=== PATIENT | female | born 1990 | race Caucasian/White ===

== ENCOUNTER 2018-04-03 16:08 | Inpatient (IN) ==
--- NOTE | 2018-04-03 16:48 | Emergency Department Note ---
Disposition Clinical Impression: Community acquired pneumonia Qualifiers: Laterality: unspecified laterality Qualified Code(s): J18.9 - Pneumonia, unspecified organism Disposition: Admitted As Inpatient Condition: Fair Time of Disposition: 18:37 Fever HPI - General Chief Complaint: ED Fever Stated Complaint: cough fever chest discomfort Time Seen by Provider: 04/03/18 16:11 Source: patient Limitations: no limitations - History of Present Illness HPI Narrative: Patient presents with history of illness 2 days. Lightheadedness. Today felt like she might pass out. Slight cough. Fever. Holloway her heart racing last evening and again today. Holloway winded especially when she lays flat. Or if she exerts herself. Reports an all over chest tightness with pain worse with deep inspiration. Fever. Generalized body aches Pt Subjective Complaint: fever, malaise, weakness Onset (ago): day(s) (2) Maximum Temperature Reported: 102 F Temperature Source: oral Associated symptoms: Reports: chills, rigors, myalgias, nasal congestion, cough , dyspnea, nausea, night sweats. Denies: headache, sore throat, stiff neck, abdominal pain, vomiting, diarrhea, dysuria, rash, altered mental status, weight loss Improves with: acetaminophen Worsens with: exertion Treatments prior to arrival fever: acetaminophen - Related Data Home Medications Medication Instructions Recorded Confirmed Metoprolol [Lopressor] 25 mg PO BID 04/03/18 04/03/18 Allergies Allergy/AdvReac Type Severity Reaction Status Date / Time No Known Allergies Allergy Verified 06/12/17 10:59 All systems ED: reviewed and negative except as stated. Review of Systems: As Per HPI Fever PMH - Past Medical History Medical history: Reports: hypertension Surgical history: Reports: no surgical history Psychiatric history: Reports: anxiety LEASE PICKER history: Reports: - Social History Smoking Status: Unknown if ever smoked Alcohol use: Reports: occasionally Drug use: Reports: none Physical Exam Constitutional: Patient is oriented to person, place, and time. Skin color is pink. Appears well hydrated, body habitus normal . Non toxic appearing. Did not appear dyspneic or tachypnea. But she was tachycardic and flushed Head: Normocephalic and atraumatic. External ear exam normal Nose: Nose normal. Mouth/Throat: Uvula is midline, oropharynx is clear and moist and mucous membranes are normal. Eyes: Conjunctivae nl, extraocular motions and lids are normal. Pupils are equal , round, and reactive to light. Neck: Normal range of motion and phonation normal. Neck supple. Cardiovascular: Rapid rate, regular rhythm, normal heart sounds. Pulmonary/Chest: No Respiratory distress. Respiratory Effort normal and breath sounds diminished without rhonchi, rales, wheezing. Abdominal: Soft. Normal appearance and bowel sounds are normal. no tenderness, no masses, no guarding, no rebound Musculoskeletal: Good distal pulses. Soft compartments. Brisk cap refill. Extremities: Normal range of motion.Intact peripheral pulses. No Edema. Extremity skin color nl, no calf tenderness or palpable cords. Neurological: GCS 15 Patient is alert and oriented without evidence of obvious motor deficits Skin: Skin is warm, dry and intact. color is normal, cap refill is quick Psychiatric: Patient has normal mood and affect. Patient speech is normal and behavior is normal. Thought content normal. - General Limitations: no limitations General appearance: alert, in no apparent distress Course - Reevaluation(s) Reevaluation #1: Patient has significantly elevated d-dimer, evidence of near syncope and tachycardia. CTA was ordered to rule out PE. However my interpretation of chest x-ray reveals possible infiltrate which would explain her fever and tachycardia. Patient has otherwise normal labs except for elevated white blood cell count with a bit of a left shift. She has negative influenza A, B, and strep. And no sign of urinary tract infection. She is currently improving with tachycardia improved after IV fluids. Antibiotics were ordered for possible community-acquired pneumonia Pneumonia score for community-acquired pneumonia is low risk Time: 17:42 Reevaluation #2: After 2 L of IV fluid the patient remains tachycardic at 120. She states that she feels much better. She is being treated for her pneumonia. When she had up to go to the bathroom her heart rate went back up to 140 and she will require hospitalization. I discussed the case with [facility] bed management at [facility] at 1826. I have also added thyroid studies Time: 18:27 Reevaluation #3: I felt as though the patient required closer observation than is possible at this facility so I contacted bed management in an attempt to transfer this patient to the hospitalist service at [facility]. I spoke with Dr. Junior who indicates that he does not see any reason with the patient cannot be admitted to the hospitalist at our facility and slightly to call him. Time: 18:36 - Consultations Consultation #1: 4 indicated that this patient was actually a patient of Dr. Ho. I paged for that group and Dr. Davis called me back. He was made aware of the patient' s. We discussed her presentation and test results. We discussed her current treatment and continued treatment. And he agrees to accept the patient for hospitalization here and I have entered orders at his request Time: 19:56 Vital Signs Temperature 97.8 F 04/03/18 16:31 Pulse Rate 151 04/03/18 16:31 Respiratory Rate 16 04/03/18 16:31 Blood Pressure 167/90 04/03/18 16:31 O2 Sat by Pulse Oximetry 97 04/03/18 16:31 Temperature 97.6 F 04/03/18 20:35 Pulse Rate 126 04/03/18 20:35 Respiratory Rate 18 04/03/18 20:35 Blood Pressure 163/83 04/03/18 20:35 O2 Sat by Pulse Oximetry 96 04/03/18 20:35 Oxygen Delivery Oxygen Delivery Room Air Fever - MDM Narrative Medical decision making narrative: Concern regarding possible sepsis with tachycardia. It was rather extreme. Also differential diagnosis includes PE, pneumonia, - Differential Diagnosis Likely: fever of occult origin, community acquired pneumonia, pyelonephritis, sepsis, influenza - Lab Data Lab results reviewed: Yes I reviewed the patient's lab results. Result diagrams: 04/03/18 16:45 04/03/18 16:45 Lab Results 04/03/18 04/03/18 04/03/18 Range/Units 16:45 16:45 16:45 WBC 14.7 H (4.3-11.1) K/mcL RBC 5.38 H (3.82-4.97) M/mcL Hgb 13.2 (11.5-15.4) g/dL Hct 40.8 (35.3-44.9) % MCV 75.8 L (83.0-100.0) fL MCH 24.5 L (28.0-33.3) pg MCHC 32.4 (31.6-35.5) g/dL RDW 15.6 H (11.5-14.5) % Plt Count 272 (140-400) K/mcL MPV 11.2 (9.4-12.4) fL Immature Gran % 0.4 (0-4) % Seg Neutrophils % 89.4 % Lymphocytes % 5.6 % Monocytes % 3.4 % Eosinophils % 1.1 % Basophils % 0.1 % Neutrophils # 13.1 H (1.6-8.9) K/mcL Lymphocytes # 0.8 (0.6-4.6) K/mcL Monocytes # 0.5 (0.0-1.3) K/mcL Eosinophils # 0.2 (0.0-0.6) K/mcL Basophils # 0.0 (0.0-0.2) K/mcL D-Dimer (0-500) ng/mLFEU VBG pH (7.32-7.42) pH Units VBG pCO2 (41-51) mmHg VBG pO2 (25-50) mmHg VBG HCO3 (21-27) mEq/L Sodium 134 L (136-145) mEq/L Potassium 3.4 L (3.5-5.1) mEq/L Chloride 102 (98-107) mEq/L Carbon Dioxide 25 (23-29) mEq/L BUN 9 (6-20) mg/dL Creatinine 0.71 (0.60-1.20) mg/dL Est GFR ( Amer) > 60 (> 60) Est GFR (Non-Af Amer) > 60 (> 60) BUN/Creatinine Ratio 13 (6-26) Glucose 140 H (70-105) mg/dL Calculated Osmolality 279 L (280-300) Lactic Acid 1.6 (0.5-2.2) mmol/L Calcium 9.1 (8.6-10.3) mg/dL Total Bilirubin 0.3 (0.3-1.0) mg/dL Direct Bilirubin 0.1 (0.0-0.2) mg/dL Indirect Bilirubin 0.2 (0.0-1.2) mg/dL AST 9 L (13-39) Units/L ALT 8 (7-52) Units/L Alkaline Phosphatase 76 (34-104) Units/L Serum Total Protein 7.6 (6.4-8.9) g/dL Albumin 3.9 (3.5-5.7) g/dL Globulin 3.7 H (2.4-3.5) g/dL Albumin/Globulin Ratio 1.1 (1.1-2.2) TSH (0.340-5.600) mcIU/mL Urine Color (Yellow) Urine Clarity (Clear) Urine pH (5.0-8.0) pH Units Ur Specific [place] (1.010-1.025) Urine Protein (Neg-Trace) mg/dL Urine Glucose (UA) (Normal) mg/dL Urine Ketones (Negative) mg/dL Urine Blood (Negative) Urine Nitrite (Negative) Urine Bilirubin (Negative) Urine Urobilinogen (Normal) mg/dL Ur Leukocyte Esterase (Negative) Urine Microscopic RBC (0-3) per hpf Urine Microscopic WBC (0-3) per hpf Ur Squamous Epith Cells (None-Few) per lpf Urine Bacteria (None-Few) per hpf Ur Culture Indicated? (NO) Urine Test (Negative) Salicylates (15.0-30.0) mg/dL 04/03/18 04/03/18 04/03/18 Range/Units 16:45 16:45 16:54 WBC (4.3-11.1) K/mcL RBC (3.82-4.97) M/mcL Hgb (11.5-15.4) g/dL Hct (35.3-44.9) % MCV (83.0-100.0) fL MCH (28.0-33.3) pg MCHC (31.6-35.5) g/dL RDW (11.5-14.5) % Plt Count (140-400) K/mcL MPV (9.4-12.4) fL Immature Gran % (0-4) % Seg Neutrophils % % Lymphocytes % % Monocytes % % Eosinophils % % Basophils % % Neutrophils # (1.6-8.9) K/mcL Lymphocytes # (0.6-4.6) K/mcL Monocytes # (0.0-1.3) K/mcL Eosinophils # (0.0-0.6) K/mcL Basophils # (0.0-0.2) K/mcL D-Dimer 1044 H (0-500) ng/mLFEU VBG pH 7.39 (7.32-7.42) pH Units VBG pCO2 42 (41-51) mmHg VBG pO2 37 (25-50) mmHg VBG HCO3 25 (21-27) mEq/L Sodium (136-145) mEq/L Potassium (3.5-5.1) mEq/L Chloride (98-107) mEq/L Carbon Dioxide (23-29) mEq/L BUN (6-20) mg/dL Creatinine (0.60-1.20) mg/dL Est GFR ( Amer) (> 60) Est GFR (Non-Af Amer) (> 60) BUN/Creatinine Ratio (6-26) Glucose (70-105) mg/dL Calculated Osmolality (280-300) Lactic Acid (0.5-2.2) mmol/L Calcium (8.6-10.3) mg/dL Total Bilirubin (0.3-1.0) mg/dL Direct Bilirubin (0.0-0.2) mg/dL Indirect Bilirubin (0.0-1.2) mg/dL AST (13-39) Units/L ALT (7-52) Units/L Alkaline Phosphatase (34-104) Units/L Serum Total Protein (6.4-8.9) g/dL Albumin (3.5-5.7) g/dL Globulin (2.4-3.5) g/dL Albumin/Globulin Ratio (1.1-2.2) TSH 1.258 (0.340-5.600) mcIU/mL Urine Color (Yellow) Urine Clarity (Clear) Urine pH (5.0-8.0) pH Units Ur Specific [place] (1.010-1.025) Urine Protein (Neg-Trace) mg/dL Urine Glucose (UA) (Normal) mg/dL Urine Ketones (Negative) mg/dL Urine Blood (Negative) Urine Nitrite (Negative) Urine Bilirubin (Negative) Urine Urobilinogen (Normal) mg/dL Ur Leukocyte Esterase (Negative) Urine Microscopic RBC (0-3) per hpf Urine Microscopic WBC (0-3) per hpf Ur Squamous Epith Cells (None-Few) per lpf Urine Bacteria (None-Few) per hpf Ur Culture Indicated? (NO) Urine Test (Negative) Salicylates < 2.5 L (15.0-30.0) mg/dL 04/03/18 04/03/18 Range/Units 16:58 16:58 WBC (4.3-11.1) K/mcL RBC (3.82-4.97) M/mcL Hgb (11.5-15.4) g/dL Hct (35.3-44.9) % MCV (83.0-100.0) fL MCH (28.0-33.3) pg MCHC (31.6-35.5) g/dL RDW (11.5-14.5) % Plt Count (140-400) K/mcL MPV (9.4-12.4) fL Immature Gran % (0-4) % Seg Neutrophils % % Lymphocytes % % Monocytes % % Eosinophils % % Basophils % % Neutrophils # (1.6-8.9) K/mcL Lymphocytes # (0.6-4.6) K/mcL Monocytes # (0.0-1.3) K/mcL Eosinophils # (0.0-0.6) K/mcL Basophils # (0.0-0.2) K/mcL D-Dimer (0-500) ng/mLFEU VBG pH (7.32-7.42) pH Units VBG pCO2 (41-51) mmHg VBG pO2 (25-50) mmHg VBG HCO3 (21-27) mEq/L Sodium (136-145) mEq/L Potassium (3.5-5.1) mEq/L Chloride (98-107) mEq/L Carbon Dioxide (23-29) mEq/L BUN (6-20) mg/dL Creatinine (0.60-1.20) mg/dL Est GFR ( Amer) (> 60) Est GFR (Non-Af Amer) (> 60) BUN/Creatinine Ratio (6-26) Glucose (70-105) mg/dL Calculated Osmolality (280-300) Lactic Acid (0.5-2.2) mmol/L Calcium (8.6-10.3) mg/dL Total Bilirubin (0.3-1.0) mg/dL Direct Bilirubin (0.0-0.2) mg/dL Indirect Bilirubin (0.0-1.2) mg/dL AST (13-39) Units/L ALT (7-52) Units/L Alkaline Phosphatase (34-104) Units/L Serum Total Protein (6.4-8.9) g/dL Albumin (3.5-5.7) g/dL Globulin (2.4-3.5) g/dL Albumin/Globulin Ratio (1.1-2.2) TSH (0.340-5.600) mcIU/mL Urine Color Yellow (Yellow) Urine Clarity Clear (Clear) Urine pH 6.0 (5.0-8.0) pH Units Ur Specific [place] 1.020 (1.010-1.025) Urine Protein Negative (Neg-Trace) mg/dL Urine Glucose (UA) Normal (Normal) mg/dL Urine Ketones Negative (Negative) mg/dL Urine Blood Small H (Negative) Urine Nitrite Negative (Negative) Urine Bilirubin Negative (Negative) Urine Urobilinogen Normal (Normal) mg/dL Ur Leukocyte Esterase Negative (Negative) Urine Microscopic RBC 3-5 H (0-3) per hpf Urine Microscopic WBC 0-3 (0-3) per hpf Ur Squamous Epith Cells Many H (None-Few) per lpf Urine Bacteria Moderate H (None-Few) per hpf Ur Culture Indicated? NO (NO) Urine Test Negative (Negative) Salicylates (15.0-30.0) mg/dL - Radiology Data Radiology results reviewed: Yes I reviewed the patient's radiology results. My evaluation of portable chest x-ray reveals bilateral lower lobe infiltrate with left middle lobe infiltrate I have reviewed the radiology interpretation of this chest x-ray diagnosis left lower lobe pneumonia - EKG Data EKG attestation: Yes I reviewed and interpreted this EKG. EKG shows normal: sinus rhythm Rate: tachycardia When compared to previous EKG there are: no significant changes Interpretation: no acute changes
[2018-04-03 16:53] LABS: Basophils % 0.1 %; Eosinophils # 0.2 K/mcL (0.0-0.6); Eosinophils % 1.1 %; Hematocrit 40.8 % (35.3-44.9); Hemoglobin 13.2 g/dL (11.5-15.4); Immature Granulocytes % 0.4 % (0-4); Lymphocytes # 0.8 K/mcL (0.6-4.6); Lymphocytes % 5.6 %; Mean Corpuscular HGB Conc 32.4 g/dL (31.6-35.5); Mean Corpuscular Hemoglobin 24.5 pg (28.0-33.3); Mean Corpuscular Volume 75.8 fL (83.0-100.0); Mean Platelet Volume 11.2 fL (9.4-12.4); Monocytes # 0.5 K/mcL (0.0-1.3); Monocytes % 3.4 %; Neutrophils # 13.1 K/mcL (1.6-8.9); Platelet Count 272 K/mcL (140-400); Red Blood Count 5.38 M/mcL (3.82-4.97); Red Cell Distribution Width 15.6 % (11.5-14.5); Segmented Neutrophils % 89.4 %
[2018-04-03] MEDS: 0.9 % Sodium Chloride 1,000 ML IVC SCH ×8 (17:00→22:32)
[2018-04-03 17:04] LABS: Alanine Aminotransferase 8 Units/L (7-52); Albumin 3.9 g/dL (3.5-5.7); Albumin/Globulin Ratio 1.1 (1.1-2.2); Alkaline Phosphatase 76 Units/L (34-104); Aspartate Amino Transferase 9 Units/L (13-39); BUN/Creatinine Ratio 13 (6-26); Bilirubin,Direct 0.1 mg/dL (0.0-0.2); Bilirubin,Indirect 0.2 mg/dL (0.0-1.2); Bilirubin,Total 0.3 mg/dL (0.3-1.0); Blood Urea Nitrogen 9 mg/dL (6-20); Calcium 9.1 mg/dL (8.6-10.3); Carbon Dioxide 25 mEq/L (23-29); Chloride 102 mEq/L (98-107); Globulin 3.7 g/dL (2.4-3.5); Glucose 140 mg/dL (70-105); Osmolality,Calculated 279 (280-300); Potassium 3.4 mEq/L (3.5-5.1); Sodium 134 mEq/L (136-145); Total Protein 7.6 g/dL (6.4-8.9); eGFR For Non-African Americans > 60 (> 60)
[2018-04-03 17:09] LABS: Bilirubin,Urine Negative (Negative); Blood,Urine Small (Negative); Clarity,Urine Clear (Clear); Color,Urine Yellow (Yellow); Glucose,Urine (UA) Normal (Normal); Ketones,Urine Negative (Negative); Leukocyte Esterase,Urine Negative (Negative); Nitrite,Urine Negative (Negative); Protein,Urine Negative (Neg-Trace); Urobilinogen,Urine Normal (Normal)
[2018-04-03 17:13] LABS: VBG HCO3 25 mEq/L (21-27); VBG PCO2 42 mmHg (41-51); VBG PH 7.39 pH Units (7.32-7.42); VBG PO2 37 mmHg (25-50)
[2018-04-03 17:13] LABS: Squamous Epithelial Cell,Urine Many per lpf (None-Few); WBC,Urine 0-3 per hpf (0-3)
[2018-04-03 17:14] LABS: Bacteria,Urine Moderate per hpf (None-Few)
[2018-04-03] MEDS ORDERED: Isovue-370 500 ML INFUS..BTL IV ONE ×2 (17:15→20:12)
[2018-04-03] MEDS ORDERED: ISOVUE-370 100 ML INFUS..BTL IV ONE (17:37)
[2018-04-03] MEDS ORDERED: cefTRIAXone 1,000 MG in Water for inj. (sterile) 20 ML 10 ML IVP ONE (17:40)
[2018-04-03] MEDS ORDERED: Azithromycin 250 MG TABLET PO ONE (17:41)
[2018-04-03] MEDS ORDERED: *HR* HYDROmorphone (PF) 1 MG/ML SYRINGE IVP ONE (18:42)
[2018-04-03 19:12] LABS: Salicylate < 2.5 mg/dL (15.0-30.0)
[2018-04-03 19:27] LABS: Thyroid Stimulating Hormone 1.258 mcIU/mL (0.340-5.600)
[2018-04-03] MEDS ORDERED: Naloxone 0.4 MG/ML INJ IVP PRN (20:12)
[2018-04-03] MEDS ORDERED: 0.9 % Sodium Chloride 1,000 ML IVC SCH (20:12)
[2018-04-03] MEDS: *HR* Enoxaparin 40 MG/0.4 ML SYRINGE SQ SCH (22:37)
[2018-04-03] MEDS: Ondansetron ODT 4 MG TAB.RAPDIS SL PRN (22:38)
[2018-04-03] MEDS: Levalbuterol Neb 1.25 MG/3 ML IH PRN (22:38)
[2018-04-03] MEDS: 0.9 % Sodium Chloride w KCl 20 MEQ/1,000 ML MLS IVC SCH (22:38)
[2018-04-03] MEDS: Promethazine/Codeine Oral Sryup 5 ML UDC PO PRN (22:38)
[2018-04-03] MEDS: *HR* HYDROcodone/Acet 5/325 mg TABLET PO PRN (22:40)
[2018-04-04] MEDS: Ibuprofen 400 MG TABLET PO PRN ×2 (02:45→09:18)
[2018-04-04] MEDS: Acetaminophen 325 MG TABLET PO PRN ×3 (04:00→19:44)
[2018-04-04 05:14] LABS: Basophils % 0.1 %; Eosinophils # 0.2 K/mcL (0.0-0.6); Eosinophils % 1.2 %; Hematocrit 34.4 % (35.3-44.9); Hemoglobin 10.8 g/dL (11.5-15.4); Immature Granulocytes % 0.5 % (0-4); Lymphocytes # 0.7 K/mcL (0.6-4.6); Lymphocytes % 4.1 %; Mean Corpuscular HGB Conc 31.4 g/dL (31.6-35.5); Mean Corpuscular Volume 76.4 fL (83.0-100.0); Mean Platelet Volume 10.9 fL (9.4-12.4); Monocytes # 0.6 K/mcL (0.0-1.3); Monocytes % 3.8 %; Neutrophils # 14.7 K/mcL (1.6-8.9); Platelet Count 241 K/mcL (140-400); Red Cell Distribution Width 15.7 % (11.5-14.5); Segmented Neutrophils % 90.3 %
[2018-04-04] MEDS: 0.9 % Sodium Chloride w KCl 20 MEQ/1,000 ML MLS IVC SCH ×2 (05:22→13:26)
[2018-04-04 05:30] LABS: Alanine Aminotransferase 5 Units/L (7-52); Albumin 3.2 g/dL (3.5-5.7); Albumin/Globulin Ratio 1.1 (1.1-2.2); Alkaline Phosphatase 57 Units/L (34-104); Aspartate Amino Transferase 8 Units/L (13-39); BUN/Creatinine Ratio 11 (6-26); Bilirubin,Total 0.5 mg/dL (0.3-1.0); Blood Urea Nitrogen 6 mg/dL (6-20); Calcium 7.6 mg/dL (8.6-10.3); Carbon Dioxide 22 mEq/L (23-29); Chloride 108 mEq/L (98-107); Globulin 2.8 g/dL (2.4-3.5); Glucose 119 mg/dL (70-105); Magnesium 1.5 mg/dL (1.6-2.6); Osmolality,Calculated 283 (280-300); Phosphorous 2.3 mg/dL (2.7-4.5); Potassium 3.8 mEq/L (3.5-5.1); Sodium 137 mEq/L (136-145); eGFR For Non-African Americans > 60 (> 60)
[2018-04-04] MEDS: Levalbuterol Neb 1.25 MG/3 ML IH PRN ×4 (05:41→15:41)
[2018-04-04] MEDS: Promethazine/Codeine Oral Sryup 5 ML UDC PO PRN ×3 (05:42→20:02)
--- NOTE | 2018-04-04 07:47 | Internal Med History&Physical ---
Date of Encounter: 04/04/18 Time of Encounter: 07:40 Assessment and Plan (1) Bilateral pneumonia Current visit: Yes Status: Acute Patient has biapical pneumonia, likely community-acquired. She has associated leukocytosis, fever, tachycardia and relative hypoxia with saturations in the low 90s. She is feeling better with IV fluids, antibiotics. We will continue current plan. She is ill enough that she warrants hospitalization and I anticipate she is going to be here about 3 days. Qualifiers: Pneumonia type: due to unspecified organism Lung location: unspecified part of lung Qualified Code(s): J18.9 - Pneumonia, unspecified organism (2) Tachycardia Current visit: Yes Status: Acute Tachycardia is noted in the ER to the 140s. Current she is in the 120s. She has a long-standing history of heart rate averaging in the 100 range. She is having no angina. She has no cardiac history. Monitor shows sinus tachycardia. I am not dissipating any decompensation from this because of her age of 1.27 years. She will remain on a diagnostic cardiac sonographer for now though. She had negative CT for PE. (3) Hypertension Current visit: Yes Status: Chronic Chronic history of hypertension and takes low-dose metoprolol. She will be monitored during this hospital stay. She may benefit from a higher dose particularly if she stays tachycardic. Qualifiers: Hypertension type: essential hypertension Qualified Code(s): I10 - Essential (primary) hypertension (4) History of migraine Current visit: Yes Status: Chronic Chronic history of migraines. Currently under control. (5) Anemia Current visit: Yes Status: Acute Her hemoglobin dropped I suspect this is dilutional. We will monitor. No obvious signs of hemorrhage. She is hemodynamically stable. Qualifiers: Anemia type: unspecified type Qualified Code(s): D64.9 - Anemia, unspecified (6) Hypophosphatemia Current visit: Yes Status: Acute (7) Hypomagnesemia Current visit: Yes Status: Acute We will start magnesium. (8) Hypokalemia Current visit: Yes Status: Acute Potassium was added to her IV fluids. (9) DVT prophylaxis Current visit: Yes Status: Acute She will receive Lovenox for DVT prophylaxis as she will be in bed a lot of the time at this point. 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 She said she started to feel ill a day prior to admission, on Saturday and had nausea and felt lightheaded like she could pass out. She laid down beside the toilet and she thought she may have fallen asleep or passed out. When she awoke she went on to school. She took a nap after school. When she was in the car picking up her children she had a fever that spiked to 102 and then later to 104 orally. It came on very suddenly. She had chest discomfort, she can feel her heart "bounding" and she had started coughing. She has had no sputum production. Since that time she has had unrelenting coughing enough to give her a headache and nausea, she has had ongoing fevers and chills. She came to the emergency room for evaluation. In the emergency room she was found to have leukocytosis, chest x-ray suggestive of left lower lobe pneumonia. Her d-dimer was over a thousand and [address] scan to rule out PE showed bilateral apical infiltrates consistent with pneumonia. She was also found to have tachycardia with pulse sometimes into the 140s when she was ambulating. Her pulse ox was staying in the low 90s. It was recommended that she be admitted to the hospital. Through the night she had a horrible cough, she was given a cough suppressant to ease the cough as well as the chest and headache secondary to the cough. Her pulse remained in the 120s. She has low-grade fever. She is feeling somewhat better. She is having less headache currently. She told me she had not eaten in 2 or 3 days. Unfortunately, she started smoking about a month or so ago and smokes less than half pack a day. Past Med Surg Social Fam HX - Past Medical History Medical history: hypertension, migraine (History of migraine headaches, usually occipital), other (Patient smokes half a pack of cigarettes per day) Additional medical history: HTN WITH Psychiatric history: anxiety - Past Surgical History Surgical History: other (Tubal ligation) Additional surgical history: Tubal Ligation - Social History Smoking Status: Current every day smoker Packs per day: 1/2 Smokeless Tobacco Status: No Alcohol use: occasionally Drug use: none Occupational status: student (student success counselor) Current living situation: With Family (She is and has 3 children) Activity Level: Independent ambulation Recent Out of Country Travel Within the Last 8 Weeks: No Exposure or Possible Exposure to Illness During Travel: No - Family History Mother Hx Family Cancer: Yes (cervical CA) Hx Family Endocrine Disorder: Yes (Diabetes) Father Living Status: Still Living Internal Medicine - H&P: Meds Metoprolol [Lopressor] 25 mg PO BID 04/03/18 [History] 3 Allergy/AdvReac Type Severity Reaction Status Date / Time No Known Allergies Allergy Verified 06/12/17 10:59 - Constitutional Constitutional: anorexia, chills, fever(s), lethargy - EENT Eyes: tunnel vision (She gets tunnel vision when she has a migraine headache. Currently none.), no change in vision, no loss of vision Ears: no ear discharge, no ear pain Nose, mouth and throat: no sinus pressure, no sore throat - Cardiovascular Cardiovascular ROS IM: chest pain (Muscular chest pain with coughing), dyspnea, dyspnea on exertion (She became short of breath just walking a few feet to the bathroom), lightheadedness, palpitations, no irregular heart rhythm - Respiratory Respiratory: dyspnea, dyspnea on exertion, wheezing, pain on inspiration, chest congestion - Gastrointestinal Gastrointestinal: nausea, no change in bowel habits, no constipation, no vomiting - Genitourinary Genitourinary: no dysuria, no hematuria Menstruation: period normal, other (Status post BPS. Menses are about once a month, generally at the end of the month) - Musculoskeletal Musculoskeletal ROS IM: no back pain, no muscle weakness - Integumentary Integumentary IM: no rash - Neurological Neurological ROS: no confusion, no focal weakness, no frequent falls, no memory loss - Psychiatric Psychiatric: anxiety (Patient has a history of anxiety. She took citalopram and BuSpar. She has had none now for the past few weeks) - Allergic/Immunologic Allergic/Immunologic: other (She thinks she may have a mild reaction to latex ais noted with gloves.) - Constitutional Vitals: Temp Pulse Resp BP Pulse Ox 98.7 F 128 18 128/77 92 04/04/18 06:13 04/04/18 06:13 04/04/18 06:13 04/04/18 06:13 04/04/18 06:13 General appearance: Present: mild distress, A&O X 3, answers questions appropriately - Eye Eye exam: Present: EOMI, normal appearance, PERRL. Absent: conjunctival injection, scleral icterus - ENT ENT exam: Present: normal oropharynx, TM's normal bilaterally - Neck Neck exam general surgery: Absent: lymphadenopathy, tenderness, nuchal rigidity , thyromegaly - Respiratory Additional comments: Subtle crackles are heard in the apical areas particularly the left side. Anteriorly over the left sternal border I hear crackles as well. There is no wheezing. No respiratory distress. - Cardiovascular Cardiovascular exam: Present: RRR, +S1, +S2, tachycardia (Current heart rate is 120s) - GI/Abdominal GI/Abdominal exam: Present: soft. Absent: tenderness - Extremities Exam Extremities exam: Present: normal capillary refill, warm. Absent: calf tenderness, pedal edema, tenderness - Neurological Exam Neurological exam: Present: alert, CN II-XII intact, oriented X3 - Psychiatric Psychiatric exam: Present: normal affect - Skin Skin exam: Absent: rash Internal Med - H&P Results - Labs CBC & Chem 7: 04/04/18 04:53 04/04/18 04:53 Labs: Short CBC 04/04/18 Range/Units 04:53 WBC 16.3 H (4.3-11.1) K/mcL Hgb 10.8 L D (11.5-15.4) g/dL Hct 34.4 L (35.3-44.9) % Plt Count 241 (140-400) K/mcL Neutrophils # 14.7 H (1.6-8.9) K/mcL BMP 04/04/18 04:53 Sodium 137 Potassium 3.8 Chloride 108 H Carbon Dioxide 22 L BUN 6 Creatinine 0.53 L Glucose 119 H Calcium 7.6 L Liver Function 04/04/18 Range/Units 04:53 Total Bilirubin 0.5 (0.3-1.0) mg/dL AST 8 L (13-39) Units/L ALT 5 L (7-52) Units/L Alkaline Phosphatase 57 (34-104) Units/L Albumin 3.2 L (3.5-5.7) g/dL Labs have been reviewed. White blood cell count is going up as one would expect with pneumonia. Hemoglobin has dropped a bit which may be from dilution. Her magnesium and phosphorus are low.
[2018-04-04] MEDS: *HR* HYDROcodone/Acet 5/325 mg TABLET PO PRN ×2 (07:52→16:20)
[2018-04-04] MEDS: *HR* Enoxaparin 40 MG/0.4 ML SYRINGE SQ SCH (07:52)
[2018-04-04] MEDS ORDERED: Azithromycin 500 MG in D5% in Water 250 ML IVPB SCH (09:00)
[2018-04-04] MEDS ORDERED: Azithromycin 250 MG TABLET PO SCH (09:00)
[2018-04-04] MEDS: Magnesium Oxide 400 MG TABLET PO SCH ×2 (09:19→19:41)
[2018-04-04] MEDS ORDERED: cefTRIAXone 1,000 MG in Water for inj. (sterile) 20 ML 10 ML IVP SCH (11:00)
[2018-04-04] MEDS: Ondansetron ODT 4 MG TAB.RAPDIS SL PRN (12:08)
--- NOTE | 2018-04-04 18:31 | Event Note ---
Date of Encounter: 04/04/18 Time of Encounter: 18:27 This patient has taken a turn for the worse this afternoon. She is now requiring oxygen at 3 L per nasal cannula to keep her saturation 94%. She is having increased dyspnea and bilateral rib pain. Resting pulse is staying in the 120s, up to 140s when she is at the bedside commode. Her lung findings show diffuse crackles in all lung pereyra which is markedly different than subtle upper lobe crackles heard this morning. Chest x-ray shows markedly worsened infiltrates now in all lung pereyra. She is maintaining a good blood pressure. No further fever documented. With this worsening clinical state with fulminant pneumonia bilaterally she needs to be transferred to a facility with cheese pancake roller and ICU availability. I discussed this with patient and her . We are awaiting bed confirmation at [facility]. [facility] is pending.
[2018-04-04 18:43] LABS: ABG Base Excess -2 mEq/L (-2 to 3); ABG HCO3 21 mEq/L (21-27); ABG Oxygen Saturation 99 % (95-98); ABG PCO2 31 mmHg (35-45); ABG PH 7.45 pH Units (7.32-7.45); ABG PO2 109 mmHg (85-104); ABG TCO2 22 mEq/L (20-26)
[2018-04-04 18:46] VITALS: BP 126/83
[2018-04-04] MEDS ORDERED: Piperacillin/Tazobactam 3.375 GM in 0.9 % Sodium Chloride Mini Bag 100 ML IVPB ONE (19:05)
[2018-04-04] MEDS ORDERED: Furosemide 40 MG/4 ML VIAL IVP ONE (19:05)
--- NOTE | 2018-04-04 19:13 | Discharge Summary ---
- NOTES TO OUTPATIENT PROVIDER Notes to Outpatient Provider: #1. Admitted yesterday with atypical pneumonia seen on CT scan. This morning she was comfortable, on room air and afebrile. This afternoon she decompensated, requires 3 L per nasal cannula for 94% saturation and now lung findings on auscultation show diffuse crackles in all lung pereyra, mild air hunger, increased anxiety. Chest x-ray shows multiple infiltrates bilaterally in near whiteout. ABG shows 7.45/PCO2 31/PaO2 109/99% saturation. 126/83, pulse 129, respirations 16, temperature 100 Date of Encounter: 04/04/18 Time of Encounter: 19:10 - Discharge Diagnosis (1) Bilateral pneumonia Priority: Primary Status: Acute Comments: Patient was admitted last night via the emergency room with bilateral atypical pneumonia and tachycardia. She had had a fever of 102-104 at home. She had elevated d-dimer on admission to the ER, CT scan was done which showed bilateral apical infiltrates which were not seen on chest x-ray. No pulmonary embolism. Blood cultures were obtained. Influenza testing was negative. She was started on Rocephin and Zithromax. This morning she was comfortable, on room air and saturations in the mid 90s and no fever. She had subtle crackles at the left apex only. This afternoon she decompensated and had increased dyspnea, anxiety, crackles heard in all lung pereyra, saturations were dropping and she required 3 L per nasal cannula for saturations of 94%. Chest x-ray shows infiltrates in all lung pereyra moderately severe. ABG shows 7.45/31/109/99%. Blood pressure 126/ 83, pulse 129, respirations 16, temperature 100. With sudden worsening pulmonary situation concerned about fulminant pneumonia and sepsis, ARDS, atypical pneumonia. She will be transferred to [place] for ICU and pulmonologists are available. I discussed the transfer with patient and her and they are agreeable. Prior to transfer she had Lasix 40 mg IV and Zosyn 4.5gm IVPB. Qualifiers: Pneumonia type: due to unspecified organism Lung location: unspecified part of lung Qualified Code(s): J18.9 - Pneumonia, unspecified organism (2) Tachycardia Priority: Secondary Status: Acute Comments: She has had tachycardia the entire time. Typically 100 to 120s. When she is up around will go to the 130s. This is improved from the ER last night after she had fluids. It has been sinus tachycardia. This has been felt to be due to reaction to her pneumonia. (3) Hypertension Priority: Secondary Status: Chronic Comments: Patient has a history of hypertension and takes metoprolol chronically. Medication was continued. Blood pressure stable. Qualifiers: Hypertension type: essential hypertension Qualified Code(s): I10 - Essential (primary) hypertension (4) History of migraine Priority: Secondary Status: Chronic (5) Anemia Priority: Secondary Status: Acute Comments: Her hemoglobin dropped after she had 3 L of fluid in the ER. This is likely dilutional. No obvious hemorrhage. This will need to be followed. Qualifiers: Anemia type: unspecified type Qualified Code(s): D64.9 - Anemia, unspecified (6) Hypophosphatemia Priority: Secondary Status: Acute (7) Hypomagnesemia Priority: Secondary Status: Acute Comments: Magnesium was started today by mouth. (8) Hypokalemia Priority: Secondary Status: Acute Comments: Mild hypokalemia in the ER. Potassium was added to her IV fluids today. (9) DVT prophylaxis Priority: Secondary Status: Acute Comments: Patient received Lovenox for DVT prophylaxis. Hospital course: Ms. Watt is a 27 year old female admitted with bilateral atypical pneumonia. Please see the diagnoses above. Transferred to [place] and she had worsening of her pneumonia and oxygen status. Discharge discussed with: patient, family - Time Spent with Patient Total time spent providing and/or coordinating discharge services: - Discharge Medications Home Medications: Metoprolol [Lopressor] 25 mg PO BID 04/03/18 [History] Acetaminophen [Tylenol] 650 mg PO Q6HR PRN tablet 04/04/18 [Rx] Azithromycin [Zithromax] 500 mg IVPB Q24H vial 04/04/18 [Rx] Enoxaparin [Lovenox] 40 mg SQ DAILY syringe 04/04/18 [Rx] Levalbuterol Neb [Xopenex Neb] 1.25 mg IH [id number] PRN vial.neb 04/04/18 [Rx] Magnesium Oxide [Mag-Ox] 400 mg PO BID tablet 04/04/18 [Rx] Ondansetron ODT [Zofran ODT] 8 mg SL Q8HR PRN tab.rapdis 04/04/18 [Rx] Piperacillin/Tazobactam [Zosyn] 4.5 gm IVPB ONCE vial 04/04/18 [Rx] cefTRIAXone [Rocephin] 1,000 mg IVP Q24H vial 04/04/18 [Rx] Allergies/Adverse Reactions: 3 Allergy/AdvReac Type Severity Reaction Status Date / Time No Known Allergies Allergy Verified 06/12/17 10:59 Date of admission: 04/04/18 15:27 Primary care physician: Cristine Lemos MD Discharging clinician: Arnaud Davis Anticipated date of discharge: 04/04/18 - Constitutional Vitals: Temp Pulse Resp BP Pulse Ox 100.0 F H 133 16 126/83 96 04/04/18 18:45 04/04/18 18:45 04/04/18 18:45 04/04/18 18:45 04/04/18 18:45 General appearance: Present: mild distress, A&O X 3, answers questions appropriately - Respiratory Additional comments: Lung crackles are heard in all lung pereyra. Decreased exchange. - Cardiovascular Cardiovascular exam: Present: RRR, +S1, +S2 - Extremities Exam Extremities exam: Absent: calf tenderness, tenderness - Patient Status Disposition: Transfer Short-Term Hosp Condition: Fair Functional capacity at discharge: bed bound Overall status at discharge: patient is not back to baseline - Discharge Instructions Follow Up With: Cristine Lemos MD [Primary Care Provider] - - Diet and Activity Activity: wear oxygen at all times
--- NOTE | 2018-04-05 09:53 | Electrocardiograph Report ---
[place] [id number] Test Date: 2018-04-03 Pat Name: Camila Watt Department: 2000 Room: 117 Gender: F [employer] Clerk: FRANCESCA : 1990 Requested By: Daiana Hickman Order Number: [id number] Reading MD: Destinee Bhatia Measurements Intervals [place] Rate: 145 P: 60 MT: 108 QRS: 28 QRSD: 90 T: 49 QT: 335 QTc: 419 Interpretive Statements SINUS TACHYCARDIA NONSPECIFIC ST & T-WAVE ABNORMALITY ABNORMAL RHYTHM ECG Electronically Signed On 04-05-2018 9:52:01 EDT by Destinee Bhatia
--- NOTE | 2018-04-07 13:25 | Electrocardiograph Report ---
[place] [id number] Test Date: 2018-04-04 Pat Name: Camila Watt Department: 112 Room: 117 Gender: Copy Operator: JOSE : 1990 Requested By: Daiana Hickman Order Number: [id number] Reading MD: Destinee Bhatia Measurements Intervals [place] Rate: 123 P: 56 CA: 128 QRS: 45 QRSD: 92 T: 20 QT: 337 QTc: 410 Interpretive Statements SINUS TACHYCARDIA Electronically Signed On 04-07-2018 13:24:12 EDT by Destinee Bhatia
== END 2018-04-04 20:50 | disposition short-term general hospital (02) | DRG 195 ==
LOC: EMEROOGRE 16:08 → INPGRE 16:08 → EMEROOGRE 19:11 → INPGRE 20:10
PROVIDERS: ADMIT Family Medicine; ATTEND Family Medicine